=== PATIENT | male | born 1965 | race Caucasian/White ===

== ENCOUNTER 2017-10-02 12:37 | Emergency (ER) | payer BC, SELFPAY | END 2017-10-02 13:40 | disposition home or self-care (01) | PROVIDERS: Emergency Provider Emergency Medicine; Family Provider Emergency Medicine; Visit Provider Emergency Medicine | DX: J20.9 Acute bronchitis, unspecified (principal); J44.0 Chronic obstructive pulmonary disease with (acute) lower respiratory infection; I10 Essential (primary) hypertension; F17.210 Nicotine dependence, cigarettes, uncomplicated; J01.90 Acute sinusitis, unspecified; Z79.899 Other long term (current) drug therapy | CPT/HCPCS: 71020; 80053; 85025; 87070; 87275; 87276; 87430; 99282 ==

== ENCOUNTER 2017-11-28 12:12 | Emergency (ER) | payer MEDICAID, SELFPAY ==
[2017-11-28 12:26] VITALS: BP 141/85; PULSE 88; RESP 20; TEMP 36.2; O2SAT 98; BMI 31.4
[2017-11-28 12:39] LABS: UTC Influenza A Antigen Negative (Negative); UTC Influenza B Antigen Negative (Negative)
--- NOTE | 2017-11-28 12:50 | HMH.EDUTC ---
[place] Disposition Clinical Impression: Influenza-like illness Disposition: Home, Self-Care Condition on Discharge: Good Instructions: DI for Influenza -- Adult Additional Instructions: * Lots of rest * Increase fluids, water, gatorade, powerade, pedialyte if infant/toddler/child * Monitor Temp. Tylenol every 4 hours as needed no more then 5 times a day or 4000mg in 24 hours and/or ibuprofen every 6 hours as needed no more then 3200mg in 24 hours (as long as your primary care doctor has told you that it is ok to take both) for fever/aches/pain. ER if fever no less than 101 despite tylenol and Ibuprofen * OTC cold/flu/sinus medication is ok but pick one. Do not take multiple different ones as they have similar ingredients and you can overdose on cold medication. * You (or your child) are contagious until no fever, aches, chills x 24 hours without medication for symptoms. * * Per hospital policy, Your throat swab was sent for culture. Those results are typically sent to your primary care. Be sure to follow up in 2-3 days if no improvement so they can review those results and treat if necessary. If you don't have primary care, I recommend you get one but in the mean time, you will have to return to a walk in clinic. Referrals: Provider,Referral, MD [Primary Care Provider] - (IMMEDIATELY for new or worsening symptoms, improvement followed by suddenly feeling worse OR no noticeable improvement over the next 48-72 hours. 911 for difficulty ) Forms: Work/School Release Time of Disposition: 13:19 Medical Decision Making Vital Signs: 11/28/17 12:26 Temperature 97.2 F L Temperature Source Temporal Artery Scan Pulse Rate [Left Brachial] 88 Respiratory Rate 20 Blood Pressure [Left Arm] 141/85 Blood Pressure Mean [Left Arm] 103 Blood Pressure Source [Left Arm] Automatic Cuff Blood Pressure Position [Left Arm] Sitting 02 Sat by Pulse Oximetry 98 Oxygen Delivery Method Room Air - Lab Data Lab results reviewed: Yes: I reviewed the patient's lab results. Lab Results 11/28/17 12:29: Influenza Type A Ag Negative, Influenza Type B Ag Negative 11/28/17 12:53: Strep Scn Rapid Clinic Negative Orders (Tests/Meds): ORDERS Category Date Time Status Strep Screen Confirmation Stat Micro 11/28/17 12:53 Received - Chance Inquiry Pt receiving controlled substance: No [place] HPI - General Stated complaint: fever, [place] Time Seen by Provider: 11/28/17 12:50 Mode of Arrival: Ambulatory Source of Information: Patient Limitations: No Limitations Description of Symptoms (Recalled from Triage Doc. by RN): cough, sneezing, fever, aches HEENT Symptoms (Recalled from RN notes): Yes (sneezing) Resp Symptoms (Recalled from RN notes): Yes (cough) Skin Symptoms (Recalled from RN notes): No MS Symptoms (Recalled from RN notes): Yes (aches) Functional Status (Recalled from RN notes): n/a - History of Present Illness Provider Complaint: c/o I think I have a touch of the flu and need a work excuse for it . Feeling feverish, body aches, chills, nonprod cough, fatigue,m sneezing all starting Tuesday. Girlfriend now has fever and same symptoms starting today but has not been seen. Hasn't taken or tried anything for symptoms. - Related Data Allergies Allergy/AdvReac Type Severity Reaction Status Date / Time ketorolac [From TORADOL] Allergy Intermediate Unverified 10/04/17 15:02 codeine AdvReac Mild NA-NAUSEA Unverified 10/04/17 15:02 morphine AdvReac Mild NA-NAUSEA/V Unverified 10/04/17 15:02 OMITING - Worker's Comp Is this a Worker's Comp case?: No [facility] History I have reviewed the patient's past medical history: Yes Medical History: Reports:: Hypertension Denies:: Diabetes Mellitus Type 2 Other Surgeries: Yes: Other (right UE fracture (bone marrow from stomach moved to arm to heal fracture)) - *Social History Smoking Status: Current every day smoker Tobacco Type: cigarettes Alcohol Intake: never - Psychiatric History Ex
--- NOTE | 2017-11-28 12:53 | ED_ITS ---
[facility] [place] Impression: Influenza-like illness Disposition: Home, Self-Care Condition on Discharge: Good Instructions: DI for Influenza -- Adult Additional Instructions: * Lots of rest * Increase fluids, water, gatorade, powerade, pedialyte if infant/toddler/child * Monitor Temp. Tylenol every 4 hours as needed no more then 5 times a day or 4000mg in 24 hours and/or ibuprofen every 6 hours as needed no more then 3200mg in 24 hours (as long as your primary care doctor has told you that it is ok to take both) for fever/aches/pain. ER if fever no less than 101 despite tylenol and Ibuprofen * OTC cold/flu/sinus medication is ok but pick one. Do not take multiple different ones as they have similar ingredients and you can overdose on cold medication. * You (or your child) are contagious until no fever, aches, chills x 24 hours without medication for symptoms. * * Per hospital policy, Your throat swab was sent for culture. Those results are typically sent to your primary care. Be sure to follow up in 2-3 days if no improvement so they can review those results and treat if necessary. If you don' t have primary care, I recommend you get one but in the mean time, you will have to return to a walk in clinic. Referrals: Provider,Referral, MD [Primary Care Provider] - (IMMEDIATELY for new or worsening symptoms, improvement followed by suddenly feeling worse OR no noticeable improvement over the next 48-72 hours. 911 for difficulty ) Forms: Work/School Release Time of Disposition: 13:19 Medical Decision Making Vital Signs: 11/28/17 12:26 Temperature 97.2 F L Temperature Source Temporal Artery Scan Pulse Rate [Left Brachial] 88 Respiratory Rate 20 Blood Pressure [Left Arm] 141/85 Blood Pressure Mean [Left Arm] 103 Blood Pressure Source [Left Arm] Automatic Cuff Blood Pressure Position [Left Arm] Sitting 02 Sat by Pulse Oximetry 98 Oxygen Delivery Method Room Air - Lab Data Lab results reviewed: Yes: I reviewed the patient's lab results. Lab Results 11/28/17 12:29: Influenza Type A Ag Negative, Influenza Type B Ag Negative 11/28/17 12:53: Strep Scn Rapid Clinic Negative Orders (Tests/Meds): ORDERS Category Date Time Status Strep Screen Confirmation Stat Micro 11/28/17 12:53 Received - Chance Inquiry Pt receiving controlled substance: No [facility] [place] - General Stated complaint: fever, [place] Time Seen by Provider: 11/28/17 12:50 Mode of Arrival: Ambulatory Source of Information: Patient Limitations: No Limitations Description of Symptoms (Recalled from Triage Doc. by RN): cough, sneezing, fever, aches HEENT Symptoms (Recalled from RN notes): Yes (sneezing) Resp Symptoms (Recalled from RN notes): Yes (cough) Skin Symptoms (Recalled from RN notes): No MS Symptoms (Recalled from RN notes): Yes (aches) Functional Status (Recalled from RN notes): n/a - History of Present Illness Provider Complaint: c/o I think I have a touch of the flu and need a work excuse for it . Feeling feverish, body aches, chills, nonprod cough, fatigue,m sneezing all starting Tuesday. Girlfriend now has fever and same symptoms starting today but has not been seen. Hasn't taken or tried anything for symptoms. - Related Data Allergies Allergy/AdvReac Type Severity Reaction Status Date / Time ketorolac [From TORADOL] Allergy Intermediate Unverified 10/04/17 15:02 codeine AdvReac Mild NA-NAUSEA Unverified
[2017-11-28 13:16] LABS: UTC Strep Screen (Rapid) Negative (Negative)
[2017-11-28 13:22] VITALS: BP 145/78; PULSE 76; RESP 20; TEMP 36.7; O2SAT 99
== END 2017-11-28 13:23 | disposition home or self-care (01) ==
PROVIDERS: Emergency Provider Nurse Practitioner Family; Family Provider Emergency Medicine
DX: J10.1 Influenza due to other identified influenza virus with other respiratory manifestations (principal); I10 Essential (primary) hypertension; F17.210 Nicotine dependence, cigarettes, uncomplicated; Z88.6 Allergy status to analgesic agent
CPT/HCPCS: 87804; 87880; 99202

== ENCOUNTER → 2020-10-04 10:21 | Outpatient (CLI) | payer MEDICAID, SELFPAY ==
--- NOTE | 2020-10-04 10:21 | MR_ITS ---
PROCEDURE: MR LUMBAR SPINE WO CON CLINICAL INDICATION: back pain Chronic low back pain with pain and numbness and tingling down the right leg COMPARISON: MR IT TRAINER/O MRI-L-SPINE W/O from 09/18/2015 TECHNIQUE: Standard multiplanar multiecho sequences are performed without contrast. 3-D MIP and myelographic images are also rendered and reviewed FINDINGS: There is normal alignment. The spinal cord ends at the L1 level. There is mild generalized facet and ligamentum hypertrophic change. L1-L2: Unremarkable. L2-L3: Mild facet and ligamentum hypertrophy. L3-L4: Mild facet and ligamentum hypertrophy. L4-5: Facet ligamentum hypertrophy with mild bilateral foraminal narrowing. L5-S1: Degenerative disc disease with bulging disc with a small annular tear centrally. There is minimal central/left paracentral disc protrusion. There is facet and ligamentum hypertrophy with bilateral foraminal narrowing. No bony canal stenosis or extruded herniated disc evident. IMPRESSION: Mild multilevel lumbar spondylosis as described above. No extruded herniated disc or bony canal stenosis. Overall no significant change compared to the previous exam. Degenerative disc disease at L5-S1 with bulging disc with a small annular tear centrally. There is minimal central/left paracentral disc protrusion. There is facet and ligamentum hypertrophy with bilateral foraminal narrowing Dictated by: Bassam Block MD 10/06/2020 09:29 Bassam Block MD in [place] 10/06/2020 09:29
== END ==
PROVIDERS: PCP Emergency Medicine; Visit Provider Emergency Medicine
DX: M54.9 Dorsalgia, unspecified (principal); M54.5 Low back pain
CPT/HCPCS: 72148; 76376

== ENCOUNTER 2022-01-13 14:57 | Emergency (ER) | payer MEDICAID, SELFPAY ==
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
--- NOTE | 2022-01-13 15:02 | PC.NURSE ---
Rad aware of orders
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
--- NOTE | 2022-01-13 15:09 | PC.NURSE ---
rad notified of CT orders on pt
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
--- NOTE | 2022-01-13 15:18 | PC.NURSE ---
Rad at bedside
[2022-01-13 15:20] VITALS: BP 122/76; PULSE 85; RESP 16; TEMP 36.8; O2SAT 100
--- NOTE | 2022-01-13 15:23 | PC.NURSE ---
pt removed from backboard per dr vergara
[2022-01-13 15:41] VITALS: BP 135/95; PULSE 81; O2SAT 96
--- NOTE | 2022-01-13 15:42 | PC.NURSE ---
pt family at BS, pt given warm blanket
[2022-01-13 15:49] LABS: Basophils # 0.2 K/mm3 (0-0.2); Basophils % 1.3 % (0.1-2.0); Eosinophils # 0.2 K/mm3 (0.0-0.4); Eosinophils % 1.2 % (0.1-12.0); Hematocrit 47.3 % (42.0-52.0); Hemoglobin 16.1 g/dL (14.1-18.0); Lymphocytes # 1.4 K/mm3 (0.7-4.5); Lymphocytes % 10.6 % (10-50); Mean Corpuscular HGB Conc 34.1 g/dL (31.8-35.4); Mean Corpuscular Volume 93.9 fl (80-94); Mean Platelet Volume 9.1 fl (7.4-10.4); Monocytes # 0.7 K/mm3 (0.1-1.0); Monocytes % 4.9 % (1.7-9.3); Neutrophils % 81.9 % (37.0-80.0); Platelet Count 301 K/mm3 (142-424); Red Blood Count 5.04 M/mm3 (4.60-6.20); White Blood Count 13.4 K/mm3 (4.8-10.8)
[2022-01-13 15:53] LABS: Alanine Aminotransferase 106 U/L (12-78); Albumin Level 4.4 g/dl (3.5-5.0); Albumin/Globulin Ratio 1.3 (1.1-1.8); Alkaline Phosphatase 83 U/L (38-126); Anion Gap 10.2 mEq/L (5-15); Aspartate Amino Transferase 116 U/L (17-59); Bilirubin,Total 0.8 mg/dl (0.2-1.3); Blood Urea Nitrogen 18 mg/dl (9-20); Calcium 9.4 mg/dl (8.4-10.2); Carbon Dioxide 28 mmol/L (22.0-30.0); Chloride 106 mmol/L (98-107); Estimated Glomerular Filt Rate 77 ml/min (>60); GFR (African American) 93 ML/MIN (>60); Globulin 3.4 g/dL (1.3-3.2); Glucose 143 mg/dl (74-100); Potassium 4.2 mmoL/L (3.5-5.1); Sodium 140 mmol/L (136-145); Total Protein,Serum 7.8 g/dl (6.3-8.2)
[2022-01-13 15:57] LABS: Ethyl Alcohol < 10 mg/dl (0-10)
[2022-01-13 16:00] VITALS: BP 147/87; PULSE 79; O2SAT 95
--- NOTE | 2022-01-13 16:09 | ECG_ITS ---
APPROVED REPORT Exam: Resting ECG HR:84 bpm ECG Measurements Heart Rate 84 AXES OK 179 P 56 QRSd 91 QRS 19 QT 349 T 89 QTc 390 Conclusion SINUS RHYTHM NONSPECIFIC T-WAVE ABNORMALITY BORDERLINE ECG UNCONFIRMED REPORT Electronically signed by : Cas Yang MD 01/14/2022 16:00:57
[2022-01-13 16:11] VITALS: BMI 39.4
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
--- NOTE | 2022-01-13 16:51 | PC.NURSE ---
Pt returned from rad
--- NOTE | 2022-01-13 16:56 | PC.NURSE ---
Pt's family is requesting that pt have something for pain, MD aware.
--- NOTE | 2022-01-13 17:06 | PC.NURSE ---
Dr Nunez speaking with AD at this time.
--- NOTE | 2022-01-13 17:17 | PC.NURSE ---
calling [facility] at this time.
--- NOTE | 2022-01-13 17:29 | PC.NURSE ---
PT medicated per MAR. Spoke with sister about the possibility of a chest tube and obtaining consent. Sister agreeable. Advised her we would update her after MD spoke with [facility]
--- NOTE | 2022-01-13 17:38 | PC.NURSE ---
Dr Nunez speaking to [facility]
--- NOTE | 2022-01-13 17:44 | PC.NURSE ---
Called [employer] to check flight status. Requested they call us back
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
--- NOTE | 2022-01-13 18:17 | PC.NURSE ---
TAYLOR FARMER at BS at this time for procedure.
--- NOTE | 2022-01-13 18:31 | XR_ITS ---
PROCEDURE INFORMATION: Exam: XR Chest Exam date and time: 01/13/2022 6:34 PM Age: 56 years old Clinical indication: Device placement; Chest tube; Additional info: Chest tube placement TECHNIQUE: Imaging protocol: XR of the chest. Views: 1 view. COMPARISON: CR XR CHEST PORTABLE 01/13/2022 3:11 PM FINDINGS: Tubes, catheters and devices: Left-sided chest tube is in place with the tip near the upper tip left hemithorax. Lungs: Emphysematous changes noted within the soft tissues on the left. Pleural spaces: Minimal left sided pneumothorax. Heart/Mediastinum: Unremarkable. No cardiomegaly. Bones/joints: Several bilateral rib fractures are present. IMPRESSION: 1. Minimal left sided pneumothorax. 2. Left-sided chest tube is in place with the tip near the upper tip left hemithorax. 3. Emphysematous changes noted within the soft tissues on the left. 4. Several bilateral rib fractures are present.
--- NOTE | 2022-01-13 18:59 | PC.NURSE ---
Sister signed procedure consent for pt to have chest tube placed due to pneumo on the left side. Supplies gathered: 24 F chest tube chest tube tray pleura vac Lidocaine 2% with epi Ketamine Crash cart was at bedside, pt on monitor, Placed on nasal cannula 6lpm and sats remained in the 90's 180- Time out performed at the bedside with MD. Confirmed left sided pneumo and procedure to be performed. 1808-Pt given 25mg of ketamine and 1mg of diluadid 1811- MD started procedure at this time. 1817-PT given another 25mg of ketamine 1826- completed procedure with no complications. Tube secured with 3 sutures, and silk tape, hooked up to pleura vac at this Chest x-ray confirmed and pt hooked up to intermittent suction with no issues.
--- NOTE | 2022-01-13 19:25 | PC.NURSE ---
Called report to [facility]
[2022-01-13 21:36] VITALS: BP 125/90; PULSE 78; RESP 16; TEMP 37.2; O2SAT 98
== END 2022-01-13 21:42 | disposition short-term general hospital (02) ==
PROVIDERS: Emergency Provider Emergency Medicine
DX: S27.0XXA Traumatic pneumothorax, initial encounter (principal); S30.1XXA Contusion of abdominal wall, initial encounter; S22.21XA Fracture of manubrium, initial encounter for closed fracture; V57.5XXA Driver of pick-up truck or van injured in collision with fixed or stationary object in traffic accident, initial encounter; Y92.488 Other paved roadways as the place of occurrence of the external cause; J45.909 Unspecified asthma, uncomplicated; T07.XXXA Unspecified multiple injuries, initial encounter
CPT/HCPCS: 32551; 70450; 71045; 71275; 72125; 72128; 72131; 72170; 73560; 74177; 80053; 85025; 93005; 96375; 96376; 99291; G0390; J2405; Q9967

== ENCOUNTER 2022-01-31 14:02 | Emergency (ER) | payer MEDICAID, SELFPAY ==
[2022-01-31 14:03] VITALS: BP 164/127; PULSE 97; RESP 24; TEMP 36.2; O2SAT 94; BMI 32.1
[2022-01-31 14:08] VITALS: BP 164/127; PULSE 92; O2SAT 96
--- NOTE | 2022-01-31 14:08 | PC.NURSE ---
patient given call rakesh; ADRIENNE Stone at and EKG was completed at that time
--- NOTE | 2022-01-31 14:08 | ECG_ITS ---
APPROVED REPORT Exam: Resting ECG HR:90 bpm ECG Measurements Heart Rate 90 AXES MN 169 P 66 QRSd 80 QRS 11 QT 319 T 73 QTc 367 Conclusion SINUS RHYTHM NONSPECIFIC T-WAVE ABNORMALITY BORDERLINE ECG UNCONFIRMED REPORT Electronically signed by : Cas Yang MD 02/03/2022 10:15:01
[2022-01-31 14:11] VITALS: BP 165/104; PULSE 88; O2SAT 96
--- NOTE | 2022-01-31 14:11 | PC.NURSE ---
ED MD at
[2022-01-31 14:13] VITALS: BP 165/111; PULSE 98; O2SAT 95
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
--- NOTE | 2022-01-31 14:21 | PC.NURSE ---
pt has IV and vitals, labs. pt in bed
--- NOTE | 2022-01-31 14:23 | HMH.EDGENADL ---
ED Disposition Clinical Impression: Chest pain, Pneumothorax, left, Pleural effusion, left Disposition: Home, Self-Care Condition on Discharge: Fair Instructions: DI for Shortness of Breath Prescriptions: Oxycodone HCl [Oxycodone 5mg tab (IR)] 5 mg PO Q6H PRN 2 Days #8 tab PRN Reason: Severe Pain Transmission Status: [facility] to [facility] Referrals: Martinez Holguin MD [Primary Care Provider] - - Critical Care Critical Care Time: No Attestation: On 01/31/22, the high probability of a clinically significant, sudden or life threatening deterioration of the following system(s) required my full and direct attention, intervention and personal management. The time I documented below is in addition to time spent performing reported procedures but includes the following listed in this critical care notation. Medical Decision Making - Chance Inquiry Pt receiving controlled substance: Yes Chance was queried for this patient: No Risks and benefits of using a controlled substance: were not discussed with pt by me Vital Signs: 01/31/22 14:03 01/31/22 14:08 01/31/22 14:11 Temperature 97.2 F L Temperature Source Oral Pulse Rate 92 H 88 Pulse Rate [Radial] 97 H Respiratory Rate 24 Blood Pressure 164/127 H 165/104 H Blood Pressure [Right Arm] 164/127 H Blood Pressure Mean 140 124 Blood Pressure Mean [Right Arm] 139 Blood Pressure Position [Right Arm] Sitting 02 Sat by Pulse Oximetry 94 L 96 96 Oxygen Delivery Method Room Air 01/31/22 14:13 01/31/22 14:30 Temperature Temperature Source Pulse Rate 98 H 79 Pulse Rate [Radial] Respiratory Rate Blood Pressure 165/111 H 146/91 H Blood Pressure [Right Arm] Blood Pressure Mean 125 116 Blood Pressure Mean [Right Arm] Blood Pressure Position [Right Arm] 02 Sat by Pulse Oximetry 95 96 Oxygen Delivery Method - Lab Data Lab Results 01/31/22 14:20: WBC 11.5 H, RBC 5.56, Hgb 17.2, Hct 52.1 H, MCV 93.7, MCH 30.9, MCHC 33.0, RDW 13.0, Plt Count 541 H, MPV 7.8, Neut % (Auto) 55.2, Lymph % (Auto) 19.5, [place] % (Auto) 5.5, Eos % (Auto) 16.6 H, Baso % (Auto) 3.3 H, Neut # (Auto) 6.3, Lymph # (Auto) 2.2, [place] # (Auto) 0.6, Eos # (Auto) 1.9 H, Baso # (Auto) 0.4 H 01/31/22 14:20: Sodium 140, Potassium 4.4, Chloride 103, Carbon Dioxide 30, Anion Gap 11.4, BUN 15, Creatinine 1.00, Estimated Creat Clear 119, Estimated GFR 77, Est GFR ( Amer) 93, Glucose 144 H, Calcium 10.0, Total Bilirubin 0.6, AST 45, ALT 52, Alkaline Phosphatase 139 H, Troponin I < 0.01, Total Protein 8.8 H, Albumin 4.5, Globulin 4.3 H, Albumin/Globulin Ratio 1.0 L 01/31/22 14:20: D-Dimer 2.30 H Result diagrams: 01/31/22 14:20 01/31/22 14:20 Orders (Tests/Meds): ED MEDICATIONS Discontinued Medications Generic Name Dose Route Start Last Admin Trade Name Nima PRN Reason Stop Dose Admin Acetaminophen 1,000 mg 01/31/22 14:20 01/31/22 14:33 Acetaminophen 500mg Tab PO 01/31/22 14:21 1,000 mg ONCE ONE Administration Hydromorphone HCl 0.5 mg 01/31/22 14:29 01/31/22 14:32 Hydromorphone 2mg/Ml Syringe IV 01/31/22 14:30 0.5 mg ONCE ONE Administration Iopamidol 70 ml 01/31/22 15:57 01/31/22 15:58 Iopamidol-370 (76%);100ml Bottle IV 01/31/22 15:58 70 ml ONCE ONE Administration Morphine Sulfate 5 mg 01/31/22 14:22 01/31/22 14:27 Morphine 10mg/Ml Syringe IV 01/31/22 14:23 Not Given ONCE ONE Sodium Chloride 50 ml 01/31/22 15:57 01/31/22 15:58 0.9 % Sodium Chloride 50 Ml Vial IV 01/31/22 15:58 50 ml ONCE ONE Administration Sodium Chloride 10 ml 01/31/22 15:57 01/31/22 15:58 Sodium Chloride 0.9% 10ml Syr (Rad Only) IV 01/31/22 15:58 10 ml ONCE ONE Administration ORDERS Category Date Time Status Troponin I Q3H Lab 01/31/22 17:30 Ordered Troponin I Q3H Lab 01/31/22 20:30 Ordered Medical Decision Narrative: Differential diagnosis includes but is not limited to pneumothorax, PE, ACS, mu
[2022-01-31 14:30] VITALS: BP 146/91; PULSE 79; O2SAT 96
[2022-01-31 14:36] LABS: Basophils # 0.4 K/mm3 (0-0.2); Basophils % 3.3 % (0.1-2.0); Eosinophils # 1.9 K/mm3 (0.0-0.4); Eosinophils % 16.6 % (0.1-12.0); Hematocrit 52.1 % (42.0-52.0); Hemoglobin 17.2 g/dL (14.1-18.0); Lymphocytes # 2.2 K/mm3 (0.7-4.5); Lymphocytes % 19.5 % (10-50); Mean Corpuscular Hemoglobin 30.9 pg (27.0-31.2); Mean Corpuscular Volume 93.7 fl (80-94); Mean Platelet Volume 7.8 fl (7.4-10.4); Monocytes # 0.6 K/mm3 (0.1-1.0); Monocytes % 5.5 % (1.7-9.3); Neutrophils # 6.3 K/mm3 (1.8-7.8); Neutrophils % 55.2 % (37.0-80.0); Platelet Count 541 K/mm3 (142-424); Red Blood Count 5.56 M/mm3 (4.60-6.20); White Blood Count 11.5 K/mm3 (4.8-10.8)
[2022-01-31 14:42] LABS: Alanine Aminotransferase 52 U/L (12-78); Albumin Level 4.5 g/dl (3.5-5.0); Alkaline Phosphatase 139 U/L (38-126); Anion Gap 11.4 mEq/L (5-15); Aspartate Amino Transferase 45 U/L (17-59); Bilirubin,Total 0.6 mg/dl (0.2-1.3); Blood Urea Nitrogen 15 mg/dl (9-20); Carbon Dioxide 30 mmol/L (22.0-30.0); Chloride 103 mmol/L (98-107); Creatinine Clearance Estimated 119 mL/min (50-200); Estimated Glomerular Filt Rate 77 ml/min (>60); GFR (African American) 93 ML/MIN (>60); Globulin 4.3 g/dL (1.3-3.2); Glucose 144 mg/dl (74-100); Potassium 4.4 mmoL/L (3.5-5.1); Sodium 140 mmol/L (136-145); Total Protein,Serum 8.8 g/dl (6.3-8.2)
--- NOTE | 2022-01-31 15:00 | PC.NURSE ---
PT UPDATED ON PLAN OF CARE
[2022-01-31 15:06] LABS: Troponin I < 0.01 ng/ml (0.00-0.034)
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
--- NOTE | 2022-01-31 15:59 | PC.NURSE ---
patient back from Radiology by stretcher with quality assurance qa lab technician
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
--- NOTE | 2022-01-31 17:30 | PC.NURSE ---
ED MD at for update on POC
--- NOTE | 2022-01-31 18:22 | PC.NURSE ---
UP DATED ON PLAN OF CARE
[2022-01-31 18:23] VITALS: BP 135/75; PULSE 75; RESP 20; TEMP 36.6; O2SAT 98
== END 2022-01-31 18:25 | disposition home or self-care (01) ==
PROVIDERS: Emergency Provider Student in an Organized Health Care Education/Training Program; PCP Emergency Medicine
DX: R07.9 Chest pain, unspecified (principal); R06.02 Shortness of breath; J90 Pleural effusion, not elsewhere classified; I10 Essential (primary) hypertension; J45.909 Unspecified asthma, uncomplicated; F17.210 Nicotine dependence, cigarettes, uncomplicated; Z79.51 Long term (current) use of inhaled steroids; Z79.899 Other long term (current) drug therapy; Z88.5 Allergy status to narcotic agent; Z88.8 Allergy status to other drugs, medicaments and biological substances; Z82.49 Family history of ischemic heart disease and other diseases of the circulatory system; Z80.9 Family history of malignant neoplasm, unspecified; Z83.3 Family history of diabetes mellitus
CPT/HCPCS: 71045; 71275; 80053; 84484; 85025; 85378; 93005; 96374; 96375; 96376; 99285; Q9967

== ENCOUNTER 2022-02-05 16:49 | Emergency (ER) | payer MEDICAID, SELFPAY ==
[2022-02-05 16:30] VITALS: BP 142/96; PULSE 85; RESP 19; TEMP 36.6; O2SAT 96; BMI 31.4
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
--- NOTE | 2022-02-05 16:41 | PC.NURSE ---
Called lab to request for them to come draw blood from pt
--- NOTE | 2022-02-05 16:50 | PC.NURSE ---
Notified Rad of CXR
[2022-02-05 17:18] LABS: Basophils # 0.1 K/mm3 (0-0.2); Basophils % 1.6 % (0.1-2.0); Eosinophils # 0.9 K/mm3 (0.0-0.4); Eosinophils % 13.2 % (0.1-12.0); Hematocrit 45.6 % (42.0-52.0); Hemoglobin 15.4 g/dL (14.1-18.0); Lymphocytes # 1.7 K/mm3 (0.7-4.5); Lymphocytes % 24.4 % (10-50); Mean Corpuscular HGB Conc 33.7 g/dL (31.8-35.4); Mean Platelet Volume 8.6 fl (7.4-10.4); Monocytes # 0.7 K/mm3 (0.1-1.0); Neutrophils # 3.5 K/mm3 (1.8-7.8); Neutrophils % 50.9 % (37.0-80.0); Platelet Count 318 K/mm3 (142-424); Red Blood Count 4.96 M/mm3 (4.60-6.20); White Blood Count 6.9 K/mm3 (4.8-10.8)
[2022-02-05 17:25] LABS: Chloride 107 mmol/L (98-107)
[2022-02-05 17:26] LABS: Potassium 4.1 mmoL/L (3.5-5.1); Sodium 138 mmol/L (136-145)
[2022-02-05 17:28] LABS: Blood Urea Nitrogen 10 mg/dl (9-20); Creatinine Clearance Estimated 145 mL/min (50-200); Estimated Glomerular Filt Rate 99 ml/min (>60); GFR (African American) 120 ML/MIN (>60)
[2022-02-05 17:29] LABS: Alanine Aminotransferase 35 U/L (12-78); Albumin Level 4.1 g/dl (3.5-5.0); Albumin/Globulin Ratio 1.1 (1.1-1.8); Alkaline Phosphatase 114 U/L (38-126); Anion Gap 12.1 mEq/L (5-15); Aspartate Amino Transferase 37 U/L (17-59); Bilirubin,Total 0.6 mg/dl (0.2-1.3); Calcium 8.8 mg/dl (8.4-10.2); Carbon Dioxide 23 mmol/L (22.0-30.0); Globulin 3.9 g/dL (1.3-3.2); Glucose 93 mg/dl (74-100)
--- NOTE | 2022-02-05 19:15 | PC.NURSE ---
PT C/O PAIN COMING BACK NEW MED ORDERS GIVEN
--- NOTE | 2022-02-05 20:00 | HMH.EDGENADL ---
ED Disposition Clinical Impression: Pleural effusion, left, Pneumothorax, left Ribs, multiple fractures Qualifiers: Encounter type: initial encounter Fracture type: closed Laterality: left Qualified Code(s): S22.42XA - Multiple fractures of ribs, left side, initial encounter for closed fracture Disposition: Home, Self-Care Condition on Discharge: Fair Instructions: DI for Rib Fracture Additional Instructions: Tylenol 3 take-home pack, then Percocet for pain. Reschedule your appointment for [facility] trauma clinic for next week. Additional instructions for CONTROLLED SUBSTANCES: You have been prescribed a medication that is a controlled substance. Controlled substances include pain medications known as opiates and sedative nerve medications known as benzodiazepines. Tramadol, fioricet, and gabapentin are also controlled substances. Some common opiates include: Codeine (such as Tylenol #3) Hydrocodone (Vicodin, Lortab, Lorcet, Dierks) Oxycodone (Percocet, Percodan, Oxycodone, Oxy IR) Some common benzodiazepines include: Diazepam (Valium) Lorazepam (Ativan) Alprazolam (Xanax) Clonazepam (Klonopin) Oxazepam (Serax) All of these controlled substances are highly addictive and frequently abused. Misuse can and frequently does lead to addiction as well as overdose and . Medication should be stored in a locked cabinet or other secure storage unit. Do not store the medication in a motor vehicle. Short term supplies, 3 days or less, are prescribed because of the highly addictive nature of the medication. Any of the controlled substance medication NOT taken should be disposed of properly and NOT SAVED. The recommended method of disposing of unused medications is: Place the medicines in a sealable plastic bag. If the medicine is a solid, crush it or add water to dissolve it. Add something undesirable (cat litter, coffee grounds, etc.) Dispose of sealed bag in household trash Do not flush or pour unused medicines down a sink or drain. Controlled substances should not be shared, given away or sold. Because of the addictive nature and frequent abuse, these medications are sometimes stolen. These medications should be kept in a safe place where they cannot be stolen. Do not keep them in your car or purse. Lost or stolen prescriptions for controlled substances WILL NOT BE REFILLED in this emergency department, regardless of whether a police report was filed. Prescriptions: Oxycodone HCl/Acetaminophen [Percocet 5/325mg tablet] 1 tab PO Q6HP PRN #20 tab PRN Reason: Moderate To Severe Pain Transmission Status: Sent to [facility] Referrals: Provider,Referral, [Primary Care Provider] - - Critical Care Critical Care Time: No Attestation: On 02/05/22, the high probability of a clinically significant, sudden or life threatening deterioration of the following system(s) required my full and direct attention, intervention and personal management. The time I documented below is in addition to time spent performing reported procedures but includes the following listed in this critical care notation. Medical Decision Making - Chance Inquiry Pt receiving controlled substance: Yes Chance was queried for this patient: Yes Risks and benefits of using a controlled substance: were discussed with pt by me Vital Signs: 02/05/22 16:30 Temperature 97.8 F Temperature Source Oral Pulse Rate [Right Radial] 85 Respiratory Rate 19 Blood Pressure [Right Arm] 142/96 H Blood Pressure Mean [Right Arm] 111 Blood Pressure Source [Right Arm] Automatic Cuff Blood Pressure Position [Right Arm] Sitting 02 Sat by Pulse Oximetry 96 Oxygen Delivery Method Room Air - Lab Data Lab Results 02/05/22 17:09: WBC 6.9, RBC 4.96, Hgb 15.4, Hct 45.6, MCV 92.0, MCH 31.0, MCHC 33.7, RDW 13.0, Plt Count 318, MPV 8.6, Neut % (Auto) 50.9, Lymph % (Auto) 24.4, [place] % (Auto) 10.0 H, Eos % (Auto) 13.2 H, Bas
[2022-02-05 20:09] VITALS: BP 134/78; PULSE 80; RESP 18; TEMP 36.6; O2SAT 97
== END 2022-02-05 20:39 | disposition home or self-care (01) ==
PROVIDERS: Emergency Provider Emergency Medicine
DX: J90 Pleural effusion, not elsewhere classified (principal); J93.9 Pneumothorax, unspecified; S22.42XA Multiple fractures of ribs, left side, initial encounter for closed fracture; I10 Essential (primary) hypertension; J45.909 Unspecified asthma, uncomplicated; F17.210 Nicotine dependence, cigarettes, uncomplicated
CPT/HCPCS: 36415; 71046; 80053; 85025; 96374; 96376; 99284

== ENCOUNTER 2022-09-27 21:09 | Emergency (ER) | payer OTHER, MEDICAID, SELFPAY ==
[2022-09-27 21:10] VITALS: BP 153/81; PULSE 106; RESP 20; TEMP 36.6; O2SAT 97; BMI 31.4
[2022-09-27 21:31] VITALS: BP 153/81; PULSE 96; O2SAT 92
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
[2022-09-27 23:36] LABS: Basophils # 0.1 K/mm3 (0-0.2); Eosinophils # 0.2 K/mm3 (0.0-0.4); Eosinophils % 1.8 % (0.1-12.0); Hematocrit 52.7 % (42.0-52.0); Hemoglobin 17.5 g/dL (14.1-18.0); Mean Corpuscular HGB Conc 33.2 g/dL (31.8-35.4); Mean Corpuscular Hemoglobin 30.4 pg (27.0-31.2); Mean Corpuscular Volume 91.3 fl (80-94); Mean Platelet Volume 8.9 fl (7.4-10.4); Monocytes # 0.7 K/mm3 (0.1-1.0); Monocytes % 7.1 % (1.7-9.3); Neutrophils # 7.2 K/mm3 (1.8-7.8); Neutrophils % 70.1 % (37.0-80.0); Platelet Count 283 K/mm3 (142-424); Red Blood Count 5.77 M/mm3 (4.60-6.20); Red Cell Distribution Width 13.5 % (11.5-17.5); White Blood Count 10.2 K/mm3 (4.8-10.8)
[2022-09-27 23:43] LABS: Alanine Aminotransferase 60 U/L (12-78); Albumin Level 4.4 g/dl (3.5-5.0); Alkaline Phosphatase 86 U/L (38-126); Anion Gap 6.6 mEq/L (5-15); Aspartate Amino Transferase 52 U/L (17-59); Bilirubin,Direct 0.1 mg/dl (0.0-0.4); Bilirubin,Indirect 0.6 mg/dL (0.0-0.9); Bilirubin,Total 0.7 mg/dl (0.2-1.3); Bilirubin,Unconjugated 0.5 mg/dL (0.0-1.1); Blood Urea Nitrogen 18 mg/dl (9-20); Carbon Dioxide 30 mmol/L (22.0-30.0); Chloride 102 mmol/L (98-107); Creatinine Clearance Estimated 115 mL/min (50-200); Estimated Glomerular Filt Rate 76 ml/min (>60); GFR (African American) 93 ML/MIN (>60); Glucose 106 mg/dl (74-100); Lipase 68 U/L (23-300); Potassium 4.6 mmoL/L (3.5-5.1); Sodium 134 mmol/L (136-145); Total Protein,Serum 8.2 g/dl (6.3-8.2)
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
[2022-09-28 01:49] VITALS: BP 150/80; PULSE 89; RESP 18; TEMP 36.6; O2SAT 99
== END 2022-09-28 02:51 | disposition home or self-care (01) ==
PROVIDERS: Emergency Provider Emergency Medicine; PCP Emergency Medicine
DX: S20.219A Contusion of unspecified front wall of thorax, initial encounter; S93.402A Sprain of unspecified ligament of left ankle, initial encounter; S30.1XXA Contusion of abdominal wall, initial encounter; V89.2XXA Person injured in unspecified motor-vehicle accident, traffic, initial encounter
CPT/HCPCS: 71260; 72125; 72128; 72131; 72170; 73030; 73060; 73110; 73610; 73630; 74177; 80048; 80076; 83690; 85025; 96374; 96375; 99285; J2405; Q9967

== ENCOUNTER → 2022-12-08 10:35 | Outpatient (CLI) | payer MEDICAID, SELFPAY ==
[2022-12-08 15:26] LABS: Amphetamine/Metha Screen,Urine Negative ng/ml (<1000); Barbiturates Screen,Urine Negative ng/ml (<200)
[2022-12-08 15:27] LABS: Benzodiazepines Screen,Urine Negative ng/ml (<200)
[2022-12-08 15:28] LABS: Cannabinoid Screen,Urine Negative ng/ml (<50); Cocaine Screen,Urine Negative ng/ml (<300)
[2022-12-08 15:29] LABS: Methadone Screen,Urine Negative ng/ml (<300)
[2022-12-08 15:30] LABS: Opiate Screen,Urine Negative ng/ml (<300); Phencyclidine Screen,Urine Negative ng/ml (<25)
== END ==
PROVIDERS: PCP Emergency Medicine; Visit Provider Emergency Medicine
DX: Z79.899 Other long term (current) drug therapy (principal)
CPT/HCPCS: 80305

== ENCOUNTER → 2023-02-01 18:58 | Outpatient (CLI) | payer MEDICAID, SELFPAY ==
[2023-02-01 19:55] LABS: Amphetamine/Metha Screen,Urine Negative ng/ml (<1000)
[2023-02-01 19:56] LABS: Barbiturates Screen,Urine Negative ng/ml (<200); Benzodiazepines Screen,Urine Negative ng/ml (<200)
[2023-02-01 19:57] LABS: Cannabinoid Screen,Urine Negative ng/ml (<50)
[2023-02-01 19:58] LABS: Methadone Screen,Urine Negative ng/ml (<300); Opiate Screen,Urine Positive ng/ml (<300)
[2023-02-01 19:59] LABS: Cocaine Screen,Urine Negative ng/ml (<300)
[2023-02-01 20:00] LABS: Phencyclidine Screen,Urine Negative ng/ml (<25)
== END ==
PROVIDERS: PCP Emergency Medicine; Visit Provider Emergency Medicine
DX: G89.29 Other chronic pain (principal)
CPT/HCPCS: 80305

== ENCOUNTER → 2023-03-11 13:27 | Outpatient (CLI) | payer MEDICAID, SELFPAY ==
--- NOTE | 2023-03-11 13:32 | XR_ITS ---
FINAL REPORT CLINICAL HISTORY: lt ankle pain COMPARISON: 09/27/2022 FINDINGS: Left ankle Three views were obtained. There is no acute fracture or dislocation. There is chronic calcification inferior to the medial malleolus, stable since prior. There are mild degenerative changes. Small calcaneal spurs are identified. IMPRESSION: Degenerative and chronic findings. Reviewed, Interpreted and Dictated by Silvano Dietz III, MD Transcribed by Bertha Olivera Authenticated and [facility]
== END ==
PROVIDERS: PCP Emergency Medicine; Visit Provider Orthopaedic Surgery
DX: M25.572 Pain in left ankle and joints of left foot (principal)
CPT/HCPCS: 73610

== ENCOUNTER → 2023-03-25 14:33 | Outpatient (CLI) | payer MEDICAID, SELFPAY ==
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
== END ==
PROVIDERS: PCP Emergency Medicine; Visit Provider Orthopaedic Surgery
DX: M25.572 Pain in left ankle and joints of left foot (principal); S93.402A Sprain of unspecified ligament of left ankle, initial encounter
CPT/HCPCS: 73721

== ENCOUNTER → 2023-05-24 16:04 | Outpatient (CLI) | payer MEDICAID, SELFPAY ==
--- NOTE | 2023-05-24 16:12 | ECG_ITS ---
APPROVED REPORT Exam: Resting ECG HR:81 bpm ECG Measurements Heart Rate 81 AXES AZ 179 P 55 QRSd 84 QRS 31 QT 355 T 72 QTc 393 Conclusion SINUS RHYTHM NORMAL ECG UNCONFIRMED REPORT Electronically signed by : Cas Yang MD 05/24/2023 20:44:12
[2023-05-25 13:10] LABS: Amphetamine/Metha Screen,Urine Negative ng/ml (<1000); Barbiturates Screen,Urine Negative ng/ml (<200); Benzodiazepines Screen,Urine Negative ng/ml (<200); Cannabinoid Screen,Urine Negative ng/ml (<50); Cocaine Screen,Urine Negative ng/ml (<300); Opiate Screen,Urine Negative ng/ml (<300); Phencyclidine Screen,Urine Negative ng/ml (<25)
[2023-05-25 16:36] LABS: Methadone Screen,Urine Negative ng/ml (<300)
== END ==
PROVIDERS: PCP Emergency Medicine; Visit Provider Orthopaedic Surgery
DX: Z79.899 Other long term (current) drug therapy (principal); Z01.818 Encounter for other preprocedural examination
CPT/HCPCS: 80305; 93005

== ENCOUNTER 2024-04-05 15:23 | Outpatient (CLI) | payer MEDICAID, SELFPAY ==
[2024-04-05 19:02] LABS: Basophils # 0.1 K/mm3 (0-0.2); Basophils % 1.1 % (0.1-2.0); Eosinophils # 0.3 K/mm3 (0.0-0.4); Hematocrit 43.9 % (42.0-52.0); Hemoglobin 14.8 g/dL (14.1-18.0); Lymphocytes # 1.9 K/mm3 (0.7-4.5); Lymphocytes % 31.9 % (10-50); Mean Corpuscular HGB Conc 33.7 g/dL (31.8-35.4); Mean Corpuscular Hemoglobin 32.3 pg (27.0-31.2); Mean Corpuscular Volume 96.1 fl (80-94); Mean Platelet Volume 10.7 fl (7.4-10.4); Monocytes # 0.4 K/mm3 (0.1-1.0); Monocytes % 7.3 % (1.7-9.3); Neutrophils # 3.3 K/mm3 (1.8-7.8); Neutrophils % 54.7 % (37.0-80.0); Platelet Count 272 K/mm3 (142-424); Red Blood Count 4.57 M/mm3 (4.60-6.20); Red Cell Distribution Width 13.5 % (11.5-17.5)
[2024-04-05 19:30] LABS: Alanine Aminotransferase 114 U/L (12-78); Albumin/Globulin Ratio 1.3 (1.1-1.8); Alkaline Phosphatase 90 U/L (38-126); Aspartate Amino Transferase 112 U/L (17-59); Bilirubin,Total 0.7 mg/dl (0.2-1.3); Blood Urea Nitrogen 16 mg/dl (9-20); Calcium 9.8 mg/dl (8.4-10.2); Carbon Dioxide 27 mmol/L (22.0-30.0); Chloride 105 mmol/L (98-107); Chol/HDL Ratio 4.4 (1-3.5); Cholesterol 160 mg/dl (140-200); Estimated Glomerular Filt Rate 76 ml/min (>60); GFR (African American) 92 ML/MIN (>60); Globulin 3.2 g/dL (1.3-3.2); Glucose 97 mg/dl (74-100); HDL Cholesterol 36 mg/dl (40-60); Sodium 142 mmol/L (136-145); Total Protein,Serum 7.2 g/dl (6.3-8.2); Triglycerides 169 mg/dl (30-150); VLDL Cholesterol 34 mg/dL (0-40)
[2024-04-05 19:41] LABS: Direct LDL Cholesterol 92.33 mg/dL (100-129)
[2024-04-05 19:51] LABS: 25-OH Vitamin D, Total 62.2 ng/mL (30-100)
[2024-04-05 20:04] LABS: Prostate Specific Ag Screen 0.3 ng/ml (0.0-4.0); Thyroid Stimulating Hormone 2.49 uIU/mL (0.465-4.68)
== END 2024-04-05 23:59 | disposition home or self-care (01) ==
LOC: LAB.DROPOF 04-06 10:14
PROVIDERS: PCP Nurse Practitioner Family; Visit Provider Nurse Practitioner Family
DX: M54.50 Low back pain, unspecified (principal)
CPT/HCPCS: 80050; 80053; 80061; 82306; 84443; 85025; G0103